=== PATIENT | female | born 1940 | race Caucasian/White ===

== ENCOUNTER 2017-01-01 01:54 | Inpatient (IN) | payer OTHER ==
[~2017-01-01] VITALS: Ht 175.3 cm; Wt 81.2 kg
[~2017-01-01 01:54] MED LIST: ASPIRIN EC81 M1 PO; CLARITIN10 M1 PO; PRAVACHOL20 M2 PO; PRILOSEC OTC20 M1 PO
--- NOTE | 2017-01-01 11:36 | Admission Core Measures ---
Admission Meds I reviewed the following Meds: Current Medications Sig/Senait Start time Last Medication Dose Stop Time Status Admin Acetaminophen 975 MG ONCE 01/01 0000 NR (Tylenol) 01/01 2359 Cefazolin Sodium 2,000 MG ONCE 01/01 NR (Kefzol-Ancef Inj) 01/01 2359 Oxycodone HCl 10 MG ONCE 01/01 0000 NR (Roxicodone) 01/01 2359 Acute Coronary Syndrome Inclusion Criteria ACS Diagnosis No Inpatient Core Measures LDL Reminder: If No, please order W/I first 24hr of stay Congestive Heart Failure Inclusion Criteria CHF Diagnosis No Cerebrovascular accident Inclusion Criteria CVA/TIA Diagnosis No Inpatient Core Measures Bedside Swallow Eval Reminder: If BSE failed, place ST order Antithrombotic Reminder: Order Antithrombotic Medication by end of day 2 Antithrombotic Reminder: Document Reason Antithrombotic Not ordered by end of day 2 AFIB/Flutter Reminder: If Present, add to problem list AFIB/Flutter Reminder: Order Anticoag Medication for pts with AFIB/Flutter Atherosclerosis Reminder: If Present, add to problem list LDL Reminder: If No, please order W/I first 24hr of stay PT Order Reminder: If No, please order Venous thromboembolism Inpatient Core Measures VTE Risk Factors: Age > 40, Surgery No [facility] VTE prophylaxis d/t No contraindications No VTE Pharm Prophylaxis d/t No contraindications Inclusion Criteria - Per Current guidelines, there needs to be overlap - treatment for the first 5 days of Warfarin therapy. - Parenteral Anticoagulation (IV or SC) needs to be - given along with Warfarin therapy. VTE Diagnosis No VTE Type NONE VTE Confirmed by (Test) NONE Problem List As ranked by this Provider includes Assessment & Plan 1. Status post total hip replacement, right HOME MEDS Home Med List Aspirin (Ecotrin*) 81 MG TABLET.DR 1 TAB PO DAILY PROPHO (Reported) Loratadine (Claritin) 10 MG TABLET 1 TAB PO DAILY ALLERGIES (Reported) Omeprazole Magnesium (Prilosec Otc) 20 MG TABLET.DR 1 TAB PO DAILY GERD ( Reported) Pravastatin Sodium (Pravachol) 20 MG TABLET 1 TAB PO DAILY CHOLESTEROL ( Reported)
[2017-01-01] MEDS ORDERED: COLACE100 M1 PO (11:49)
[2017-01-01] MEDS ORDERED: DILAUDID2 M1 PO (11:49)
[2017-01-01] MEDS ORDERED: MS CONTIN15 M2 PO (11:49)
[2017-01-01] MEDS ORDERED: ASPIRIN EC325 M2 PO (11:49)
[2017-01-01] MEDS ORDERED: MIRALAX17 G1 PO (11:49)
--- NOTE | 2017-01-01 12:27 | Patient Discharge Instructions ---
Discharge Instructions General Discharge Information You were seen/treated for: Right hip DJD/osteoarthritis, history of right hip fracture You had these procedures: Conversion to a right total hip replacement Watch for these problems: The vertical 101, excessive drainage from the wound, inability to bear weight on the operative site Call Surgeon to remove: [place] Do not soak the wound: Yes Daily wet to dry dressings: No No bath, but you may shower: Yes Other wound care: Dry dressing change once daily starting postoperative day #2. You may shower as desired. No baths. No ointments of any kind. Ice as needed for comfort. Diet Continue normal diet: Yes Recommended Diet: Heart Healthy Activity Full Activity/No Limits: No Activity Self Limited: Yes Pounds, do NOT lift more than: 5 Activity Limited to: Weight bear as tolerated Other activity limits: Avoid strenuous activity. You may ambulate as desired with rolling walker and progressed per PT recommendations. No driving while using narcotics and until cleared by M.D. Acute Coronary Syndrome Inclusion Criteria At DC or during hospital stay patient has or had the following: ACS DIAGNOSIS No Discharge Core Measures Meds if any: Prescribed or Continued at Discharge Meds if any: NOT Prescribed or Continued at Discharge Congestive Heart Failure Inclusion Criteria At DC or during hospital stay patient has or had the following: CHF DIAGNOSIS No Discharge Core Measures Meds if any: Prescribed or Continued at Discharge Meds if any: NOT Prescribed or Continued at Discharge Cerebrovascular accident Inclusion Criteria At DC or during hospital stay patient has or had the following: CVA/TIA Diagnosis No Discharge Core Measures Meds if any: Prescribed or Continued at Discharge Meds if any: NOT Prescribed or Continued at Discharge Venous thromboembolism Inclusion Criteria VTE Diagnosis No VTE Type NONE VTE Confirmed by (Test) NONE Discharge Core Measures - Per Current guidelines, there needs to be overlap - treatment for the first 5 days of Warfarin therapy. - If discharged on Warfarin prior to 5 days of - overlap therapy, the patient will need to be - assessed for post discharge needs including - *Post discharge parental anticoagulation - *Warfarin and/or parental anticoagulation education - *Follow up date to check INR post discharge At least 5 days overlap therapy as Inpatient No Meds if any: Prescribed or Continued at Discharge Note: Overlap Therapy is Warfarin and Anticoagulant Meds if any: NOT Prescribed or Continued at Discharge
--- NOTE | 2017-01-01 12:30 | Surg Short-stay <48hrs Dis Sum ---
Visit Information Visit Dates Admission Date: 01/01/17 Discharge Date: 01/02/2017 Surgical Short Stay DC Summary Admission Diagnosis: Right hip DJD/osteoarthritis, history of right hip fracture Final Diagnosis: Same Procedure(s): Conversion to right total hip arthroplasty on 01/01/2017 Summary/Significant Findings: Patient was admitted to [facility] for elective surgery on 01/01/2017 and underwent conversion to right total hip replacement. She had a history of a previous right hip fracture with surgical fixation. The patient tolerated the procedure well, without complications. The postoperative course remained uneventful. Pain was well controlled with oral pain medication, tolerated a regular diet, and voiding without difficulty. The patient was evaluated by physical therapy during admission, was deemed stable from a medical standpoint, and was discharged. Condition at Discharge: stable Discharge Disposition: home health services Discharge instructions provided to patient/family: Yes Post discharge follow-up plan: Incision: Dry dressing. May shower. No baths. No ointments of any kind. Ice as needed. Bowel regimen: Colace and or MiraLAX Weight-bearing as tolerated Follow-up with Dr. Jacques in 6 weeks. Call office for fevers greater than 101.5, excessive drainage or inability to bear weight on operative extremity. Visiting nurse will remove reva.
--- NOTE | 2017-01-01 12:48 | Surgical Discharge Summary ---
Visit Information Visit Dates Admission Date: 01/01/17 History of Present Illness Chief Complaint: Left knee DJD/osteoarthritis Medical History Isolation History: Standard Hospital Course Course Attending Physician: ANTONY CRUZ MD Primary Care Physician: DARIN SZYMANSKI MD Hospital Course: Patient was admitted to [facility] for elective surgery on eye 01/01/2017 and underwent left total knee replacement. The patient tolerated the procedure well, without complications. The postoperative course remained uneventful. Pain was well controlled with oral pain medication, tolerated a regular diet, and voiding without difficulty. The patient was evaluated by physical therapy during admission, was deemed stable from a medical standpoint, and was discharged. Allergies: Coded Allergies: No Known Allergies (12/27/16) Significant Procedures: Total knee replacement on 01/01/2017 Disposition Summary Disposition Principal Diagnosis: Left knee DJD/osteoarthritis Discharge Instructions Medications at Discharge Discharge Medications: Stop taking the following medications: Aspirin (Ecotrin*) 81 MG TABLET.DR ORAL DAILY Continue taking these medications: Pravastatin Sodium (Pravachol) 20 MG TABLET 1 Tablet ORAL DAILY Loratadine (Claritin) 10 MG TABLET 1 Tablet ORAL DAILY Omeprazole Magnesium (Prilosec Otc) 20 MG TABLET.DR 1 Tablet ORAL DAILY Start taking the following new medications: Morphine Sulfate (Ms Contin) 15 MG TABLET.ER 1 Tablet ORAL TWICE DAILY Qty = 5 No Refills Hydromorphone HCl (Dilaudid) 2 MG TABLET 1-2 Tablet ORAL EVERY 4 HOURS NEEDED as needed for PAIN Qty = 30 No Refills Instructions: TRY TO CONTROL PAIN WITH 1 TAB FOR EACH DOSE IF POSSIBLE Aspirin (Ecotrin*) 325 MG TABLET.DR 1 Tablet ORAL TWICE DAILY Days = 28 No Refills Docusate Sodium (Colace) 100 MG CAPSULE 1 Capsule ORAL TWICE DAILY Days = 7 No Refills Polyethylene Glycol 3350 (Miralax) 17 GRAM POWD.PACK 1 Packet ORAL DAILY Days = 7 No Refills Instructions: dissolve in water
--- NOTE | 2017-01-01 13:16 | RADIOLOGY REPORT ---
EXAMINATION: XR HIP, RIGHT CLINICAL INFORMATION: Postoperative right total hip arthroplasty COMPARISON: None TECHNIQUE: Two views of the right hip. FINDINGS: Status post right total hip arthroplasty. Prosthesis is well seated. Rounded lucency along the inferior acetabulum adjacent to the hip prosthesis likely representing postoperative change. Subtle linear lucency projecting upon the right inferior acetabulum and adjacent ischium. This may represent a overlying soft tissue lucency. Follow-up x-rays recommended. Lucency within the soft tissues compatible with recent postoperative change. IMPRESSION: Status post recent postoperative change. Subtle lucency right inferior acetabulum as detailed. Clinical correlation and follow-up x-rays recommended.
[2017-01-01 14:08] VITALS: BP 112/60
--- NOTE | 2017-01-01 14:34 | PN- Orthopedic ---
Subjective Subjective: POST-OP NOTE: No complaints. Denies pain at the moment. Tolerating clears. No nausea. Not yet out of bed. Due to void this afternoon. Objective Vital Signs and I&Os Vital Signs Date Time Temp Pulse Resp B/P B/P Pulse O2 O2 Flow FiO2 Mean Ox Delivery Rate 01/01 1409 93 Nasal 2.0L Cannula 01/01 1408 96.0 65 18 112/60 93 Nasal 2.0L Cannula Intake & Output 01/01 1600 01/01 0800 01/01 0000 12/31 1600 12/31 0800 12/31 0000 Intake Total Output Total Balance Patient 179 lb Weight Weight Estimated Measurement Method Physical Exam: General - alert & oriented x 3. comfortable. no acute distress. Lungs - clear bilaterally. no w/r/r. Cardiac - s1s2. reg. Abdomen - soft. nontender. Extremities - warm bilaterally. right hip dressing c/d/i. no hematoma. no drains. nvi. calves soft and nontender b/l. Current Medications: Current Medications Sig/Senait Start time Last Medication Dose Route Stop Time Status Admin Acetaminophen 650 MG Q4P PRN 01/01 1400 AC PO Acetaminophen 0 .STK-MED ONE 01/02 716 DC PO Acetaminophen 975 MG ONCE 01/01 0000 DC PO 01/01 235 Aspirin 325 MG BID 01/01 1143 AC PO Cefazolin Sodium 2 GM Q8H 01/01 1700 AC N/A 1 UNIT IV 01/02 0129 Cefazolin Sodium 2,000 MG ONCE 01/01 0000 DC IV 01/01 2359 Dextrose/Sodium 1,000 ML .[id number] 01/01 1400 AC Chloride IV Docusate Sodium 100 MG BID 01/01 1142 AC PO Hydromorphone HCl 2 MG Q4P PRN 01/01 1400 AC PO Hydromorphone HCl 4 MG Q4P PRN 01/01 1400 AC PO Loratadine 10 MG DAILY 01/02 1000 AC PO Morphine Sulfate 2 MG Q3P PRN 01/01 1400 AC IV Omeprazole 20 MG DAILY AC 01/02 0700 AC PO Ondansetron HCl 4 MG Q6P PRN 01/01 1400 AC IV Oxycodone HCl 0 .STK-MED ONE 01/01 0716 DC PO Oxycodone HCl 10 MG ONCE 01/01 0000 DC PO 01/01 2359 Patient Medication 1 UNIT 1700 01/02 1700 [facility] ED 01/02 1701 Patient Medication 1 UNIT 0700 01/02 0700 [facility] ED 01/02 0701 Patient Medication 1 UNIT 1700 01/01 1700 [facility] ED 01/01 1701 Patient Medication 1 UNIT ONE NR 01/01 1415 [facility] ED 01/01 2015 Patient Medication 1 ED .STK-MED ONE 01/01 1405 [facility] ED 01/01 1406 Polyethylene Glycol 17 GM DAILY 01/01 1145 PO Pravastatin Sodium 20 MG 1700 01/02 1700 PO Assessment/Plan Assessment/Plan This 76 year old white female is POD#0 s/p right total hip replacement, anterior approach tolerating clears. advance diet as tolerated pain controlled awaiting PT eval asa bid cece-operative ancef x 2 doses home meds ordered due to void this afternoon will d/w Core Measures/Miscellaneous Venous Thromboembolism VTE Risk Factors: Age > 40, Surgery VTE Contraindications: No Contraindications VTE Diagnosis: No VTE Type: NONE VTE Confirmed by (Test): NONE Beta Marcie Is Beta Marcie a Home Med? No Antibiotics Is Patient on Antibiotics? Yes If Yes: prophylaxis
[2017-01-01 16:00] VITALS: BP 110/50
--- NOTE | 2017-01-01 17:01 | Operative Report ---
Operative/Inv Procedure Report Surgery Date: 01/01/17 Name of Procedure: Right total hip conversion Pre-Operative Diagnosis: Primary right hip DJD Post-Operative Diagnosis: Same Estimated Blood Loss: 300 Surgeon/Paper Cleaner: NANCY DELUNA,ANTONY Garcia Anesthesia: general endotracheal tube Operative/Procedure Note Note: Description of Procedure: The patient was taken to the operating room and positively identified. After induction of general anesthesia and administration of appropriate pre-operative antibiotics, the patient was positioned supine on the operating room table and all bony prominences were well padded. After performing a surgical timeout, the right lower extremity was prepped and draped in the usual sterile fashion. A direct anterior approach was made to the right hip. The incision was carried sharply through superficial soft tissues to the level of the fascia. Meticulous hemostasis was maintained with Bovie electocautery. The fascia over the tensor fascia chip muscle was opened sharply and the interval between the TFL and the sartorius was entered bluntly taking care to stay lateral to the lateral femoral cutaneous nerve. Retractors were placed around the femoral neck and the pericapsular fat was identified. The ascending branches of the lateral femoral circumflex vessels were identified and carefully coagulated. The pericapsular fat and anterior capsule were then resected. Attention was then turned to the previously placed 7.3 cannulated screws. The heads were identified and the screws removed with the appropriate screwdriver. A napkin ring osteotomy was performed and the femoral head was removed without difficulty. Attention was then turned to the acetabulum. After appropriate placement of retractors, the acetabulum was exposed. Soft tissue was cleaned from the acetabular margin and notch. Overhanging osteophytes were removed and the teardrop was exposed. The acetabulum was then sequentially reamed to accept a 58 mm [place] Tritanium hemispherical solid back shell. This was impacted into place in the appropriate position and fitted with a 36 mm Trident X3 zero degree polyethylene insert. Attention was then turned to the femur. After performing the appropriate ligament releases, the proximal femur was exposed. It was then sequentially broached to accept a size 6 [place] accolade 2 stem. This was trialed for leg length and stability. The trial component was removed and the final component was impacted into place. The trunnion was carefully cleaned and fit with a 36 mm, -2.5 Biolox delta ceramic femoral head. The hip was reduced and put through a full range of motion and found to be stable. The articular space was then irrigated with sterile saline. The periarticular soft tissues were infilitrated with Marcaine. The fascial layer was closed with interrupted #1 vicryl suture and the skin was re-approximated with interrupted 2 -0 vicryl. The skin was closed with a running 3-0 V-Lock suture. Steri-strips and a sterile dressing were applied. The patient was awakened and taken to the recovery room in satisfactory condition.
[2017-01-01 17:57] VITALS: BP 110/52
[2017-01-01 20:13] VITALS: BP 126/50
[2017-01-01 22:26] VITALS: BP 128/56
--- NOTE | 2017-01-01 22:57 | NUR ---
PT REQUESTED TO TAKE TEDS OFF FOR A WHILE.
--- NOTE | 2017-01-01 23:33 | NUR ---
Alyssa on pateint. HR bradycardic 49-55. Damián Gray aware. NNO
[2017-01-02 04:16] VITALS: BP 130/50
[2017-01-02 08:51] LABS: ABSOLUTE BASOPHIL COUNT 0 /CUMM (0.0-0.2); ABSOLUTE EOSINOPHIL COUNT 0 /CUMM (0.0-0.7); ABSOLUTE GRANULOCYTE CT 6.3 /CUMM (1.4-6.5); ABSOLUTE LYMPH COUNT 1.2 /CUMM (1.2-3.4); ABSOLUTE MONOCYTE COUNT 0.7 /CUMM (0.10-0.60); BASOPHIL % 0.3 % (0.0-2.0); EOSINOPHIL % 0.1 % (0-5); GRANULOCYTE % 76.4 % (42.2-75.2); HEMATOCRIT 31.8 % (37-47); MEAN CORPUSCULAR HGB 31.6 PG (27.0-31.0); MEAN CORPUSCULAR HGB CONC 33.7 G/DL (33.0-37.0); MEAN CORPUSCULAR VOLUME 93.8 FL (81.0-99.0); MEAN PLATELET VOLUME 10.7 FL (7.4-10.4); PLATELET COUNT 109 /CUMM (130-400); RBC DISTRIBUTION WIDTH 13.6 % (11.5-14.5); RED BLOOD CELL CT 3.39 /CUMM (4.20-5.40); WHITE BLOOD CELL COUNT 8.3 /CUMM (4.8-10.8)
--- NOTE | 2017-01-02 09:01 | PN- Orthopedic ---
Subjective Subjective: Reports pain controlled. Tolerating diet. No nausea. Reports ambulated with rolling walker and PT without difficulty. She has elevator at home - no stairs reportedly. Denies dizziness. No shortness of breath. No chest pains. Voiding well. Objective Vital Signs and I&Os Vital Signs Date Time Temp Pulse Resp B/P B/P Pulse O2 O2 Flow FiO2 Mean Ox Delivery Rate 01/02 0416 98.8 73 20 130/50 94 Room Air 01/01 2226 97.9 52 20 128/56 99 Nasal 2.0L Cannula 01/01 2100 56 01/01 2013 98.0 49 20 126/50 99 Nasal 2.0L Cannula 01/01 1757 97.9 52 20 110/52 100 Nasal 2.0L Cannula 01/01 1600 Nasal 2.0L Cannula 01/01 1600 96.5 61 18 110/50 99 Nasal 2.0L Cannula 01/01 1409 93 Nasal 2.0L Cannula 01/01 1408 96.0 65 18 112/60 93 Nasal 2.0L Cannula Intake & Output 01/02 1600 01/02 0800 01/02 0000 01/01 1600 01/01 0800 01/01 0000 Intake Total 550 820 Output Total 109 728 1855 Balance -100 50 -280 Intake, IV 400 700 Intake, Oral 150 120 Output, Urine 327 602 1197 Patient 179 lb Weight Weight Estimated Measurement Method Physical Exam: General - alert & oriented x 3. comfortable. no acute distress. lungs - clear bilaterally. no w/r/r. Cardiac - s1s2. reg. Abdomen - soft. nontender. Extremities - warm bilaterally. no c/c/e. right hip dressing c/d/i. no hematoma. nvi. calves soft and nontender b/l. Current Medications: Current Medications Sig/Senait Start time Last Medication Dose Route Stop Time Status Admin Acetaminophen 650 MG Q4P PRN 01/01 1400 AC 01/02 PO 0401 Acetaminophen 975 MG ONCE 01/01 0000 DC PO 01/01 2359 Aspirin 325 MG BID 01/01 1143 AC 01/01 PO 2139 Cefazolin Sodium 2 GM Q8H 01/01 1700 DC 01/02 N/A 1 UNIT IV 01/02 0129 0108 Cefazolin Sodium 2,000 MG ONCE 01/01 0000 DC IV 01/01 235 Dextrose/Sodium 1,000 ML .[id number] 01/01 1400 NC 01/02 Chloride IV 0532 Docusate Sodium 100 MG BID 01/01 1142 AC PO Fentanyl Citrate 100 MCG .STK-MED ONE 01/01 1137 DC IM 01/01 1138 Fentanyl Citrate 100 MCG .STK-MED ONE 01/01 0941 DC IM 01/01 0942 Hydromorphone HCl 2 MG Q4P PRN 01/01 1400 AC 01/02 PO 0528 Hydromorphone HCl 4 MG Q4P PRN 01/01 1400 AC PO Hydromorphone HCl 2 MG .STK-MED ONE 01/01 1156 DC IM 01/01 1157 Hydromorphone HCl 2 MG .STK-MED ONE 01/01 0941 NC IM 01/01 0942 Loratadine 10 MG DAILY 01/02 1000 AC PO Midazolam HCl 4 MG .STK-MED ONE 01/01 1137 NC IM 01/01 1138 Morphine Sulfate 2 MG Q3P PRN 01/01 1400 AC IV Omeprazole 20 MG DAILY AC 01/02 0700 AC 01/02 PO 0528 Ondansetron HCl 4 MG Q6P PRN 01/01 1400 AC IV Oxycodone HCl 10 MG ONCE 01/01 0000 DC PO 01/01 2359 Patient Medication 1 UNIT 1700 01/02 1700 [facility] ED 01/02 1701 Patient Medication 1 UNIT 0700 01/02 0700 NC 01/02 [facility] ED 01/02 0701 0528 Patient Medication 1 UNIT 1700 01/01 1700 DC 01/01 [facility] ED 01/01 1701 1844 Patient Medication 1 UNIT ONE NR 01/01 1415 [facility] ED 01/01 2015 Patient Medication 1 ED .STK-MED ONE 01/01 1405 [facility] ED 01/01 1406 Polyethylene Glycol 17 GM DAILY 01/01 1145 AC PO Pravastatin Sodium 20 MG 1700 01/02 1700 AC PO Tranexamic Acid 2,000 MG .STK-MED ONE 01/01 1137 DC IV 01/01 1138 Results Last 48 Hours of Labs: Laboratory Tests 01/02 0656 Chemistry Sodium Pending Potassium Pending Chloride Pending Carbon Dioxide Pending Anion Gap Pending BUN Pending Creatinine Pending BUN/Creatinine Ratio Pending Hematology CBC w Diff Pending WBC Pending RBC Pending Hgb Pending Hct Pending MCV Pending MCH Pending RDW Pending Plt Count Pending MPV Pending PUBS MCHC Pending Assessment/Plan Assessment/Plan This 76 year old white female is POD#1 s/p right total hip replacement, anterior approach tolerating heart healthy diet. d/c iv fluids pain controlled continue PT. f/u clearance ?home today asa bid cece-operative ancef x 2 doses completed home meds ordered d/c home today will d/w Core Measures/Miscellaneous Venous Thromboembolism VTE Risk Factors: Age > 40, Surgery VTE Contraindications: No Contraindications VTE Diagnosis: No VTE Type: NONE VTE Confirmed by (Test): NONE Beta Marcie Is Beta Marcie a Home Med? No Antibiotics Is Patient on Antibiotics? Yes If Yes: prophylaxis
== END 2017-01-02 10:51 | disposition home health service (06) | DRG 470 ==
LOC: SDA 01:54 → 2NA 01:54 → SDA 07:00 → ENRESERV 11:45 → 2NA 13:37 → ENPENDDIS 01-02 10:21 → 2NA 01-02 10:51
PROVIDERS: Physician Assistant Surgical; ADMIT Orthopaedic Surgery
PROC: 0QP604Z Removal of Internal Fixation Device from Right Upper Femur, Open Approach (ICD-10-PCS; principal; 2017-01-01)
PROC: 0SR904A Replacement of Right Hip Joint with Ceramic on Polyethylene Synthetic Substitute, Uncemented, Open Approach (ICD-10-PCS; principal; 2017-01-01)
DX: M16.11 Unilateral primary osteoarthritis, right hip (principal); D69.6 Thrombocytopenia, unspecified; K51.90 Ulcerative colitis, unspecified, without complications; I10 Essential (primary) hypertension; E78.5 Hyperlipidemia, unspecified; E55.9 Vitamin D deficiency, unspecified; K21.9 Gastro-esophageal reflux disease without esophagitis; Z85.048 Personal history of other malignant neoplasm of rectum, rectosigmoid junction, and anus; F41.9 Anxiety disorder, unspecified; Z87.81 Personal history of (healed) traumatic fracture
CPT/HCPCS: 2NAP; 73502-RT; 82436; 88304; 97110-GO; 97116-GO; 97161-GP; 97530-GO; C9399; J0690; J0735; J2405; J7042